=== PATIENT | female | born 1985 | race American Indian/Alaskan Native ===

== ENCOUNTER 2019-01-21 23:23 | Emergency (ER) | payer SELFPAY ==
[2019-01-21] MEDS ORDERED: NACL 0.9% 1000 ML 1,000 ML IV ONE (23:41)
[2019-01-21] MEDS ORDERED: NORCO 5/325 PO ONE (23:41)
[2019-01-21] MEDS ORDERED: ZOFRAN IV ONE (23:41)
[2019-01-21] MEDS ORDERED: TORADOL IV ONE (23:41)
[2019-01-21] MEDS ORDERED: DECADRON IV ONE (23:41)
--- NOTE | 2019-01-21 23:46 | Emergency Department Report ---
ED Fever HPI - General Chief Complaint: Headache Stated Complaint: FEVER Time Seen by Provider: 01/21/19 23:38 Source: patient, old records Exam Limitations: no limitations - History of Present Illness Initial Comments: Annie is a 33 yo female who returns to ER after being evaluated earlier this morning. She has persistent headache for 5 days. She continues to have subjecive fever, abdominal cramping and sweats. Global frontal headache. Arrived via EMS. Taking ibuprofen with minimal relief. 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 Timing/Duration: constant Fever Severity/Quality: greater than 100.5 F Fever Therapy PIG BREEDER: Ibuprofen Associated Symptoms: abdominal pain, headache, muscle aches ED Review of Systems ROS: Stated complaint: FEVER Other details as noted in HPI Comment: All other systems reviewed and negative Constitutional: fever, malaise Respiratory: denies: shortness of breath Gastrointestinal: abdominal pain ED Past Medical Hx - Past Medical History Previous Medical History?: No - Surgical History Past Surgical History?: No - Social History Smoking Status: Never Smoker - Medications Home Medications: Home Medications Medication Instructions Recorded Confirmed Last Taken Type Butalb/Acetaminophen/Caffeine 1 cap PO Q6HR PRN #10 cap 01/22/19 Unknown Rx [Fioricet 50-300-40 mg CAP] ED Physical Exam - General Limitations: No Limitations General appearance: alert, in no apparent distress, other (appears comfortable, does not appear toxic) - Head Head exam: Present: atraumatic, normocephalic - Eye Eye exam: Present: normal appearance. Absent: scleral icterus, conjunctival injection - ENT ENT exam: Present: mucous membranes moist - Neck Neck exam: Present: normal inspection, full ROM. Absent: tenderness, meningismus - Respiratory Respiratory exam: Present: normal lung sounds bilaterally. Absent: respiratory distress, wheezes, rales, rhonchi - Cardiovascular Cardiovascular Exam: Present: regular rate, normal rhythm, normal heart sounds. Absent: systolic murmur, diastolic murmur, rubs, gallop - GI/Abdominal GI/Abdominal exam: Present: soft, normal bowel sounds. Absent: distended, tenderness, guarding, rebound - Extremities Exam Extremities exam: Present: normal inspection - Back Exam Back exam: Present: normal inspection - Neurological Exam Neurological exam: Present: alert, oriented X3 - Psychiatric Psychiatric exam: Present: normal affect, normal mood - Skin Skin exam: Present: warm, dry, intact, normal color. Absent: rash ED Course Vital Signs 01/21/19 01/21/19 01/21/19 23:29 23:30 23:45 Temperature 100.9 F H Pulse Rate 100 H Respiratory 16 Rate Blood Pressure 112/80 112/80 114/79 Blood Pressure 111/78 [Left] O2 Sat by Pulse 99 98 Oximetry 01/22/19 01/22/19 01/22/19 00:00 00:18 00:30 Temperature Pulse Rate Respiratory Rate Blood Pressure 111/77 111/77 102/58 Blood Pressure [Left] O2 Sat by Pulse 98 97 Oximetry 01/22/19 01/22/19 01/22/19 00:45 01:00 01:30 Temperature Pulse Rate Respiratory Rate Blood Pressure 105/64 94/49 109/57 Blood Pressure [Left] O2 Sat by Pulse 98 97 Oximetry ED Medical Decision Making - Medical Decision Making Ms. Goss is an elderly female who returns to the ER with headache abdominal cramping generalized malaise and muscle aches suspected viral syndrome such as influenza however rapid flu negative chest x-ray negative for pneumonia. I do not suspect meningitis on today's presentation. She appears well nontoxic supple neck. She does have persistent low-grade fever. Upon further history taking, she is concerned that she will not be well for her international trip to [place] in 5 days. I advised her to rest and hydrate. I also advsied her fill the prescription provided by my colleague Dr. Up. I have added additional prescription for Fioricet for headache. Critical care attestation.: If time is entered above; I have spent that time in minutes in the direct care of this critically ill patient, excluding procedure time. ED Disposition Clinical Impression: Viral syndrome, Headache, Abdominal pain, Fever Disposition: - TO HOME OR SELFCARE Is pt being admited?: No Does the pt Need Aspirin: No Condition: Stable Instructions: Viral Syndrome (ED), Acute Headache (ED) Prescriptions: Butalb/Acetaminophen/Caffeine [Fioricet 50-300-40 mg CAP] 1 cap PO Q6HR PRN #10 cap PRN Reason: Headache
--- NOTE | 2019-01-22 01:15 | XRay Report ---
PROCEDURE: XR CHEST ROUTINE 2V TECHNIQUE: PA and lateral chest radiographs were obtained. HISTORY: fever COMPARISONS: None. FINDINGS: Heart: Normal. Mediastinum/Vessels: Normal. Lungs/Pleural space: Normal. Bony thorax: No acute osseous abnormality. IMPRESSION: Normal examination. This document is electronically signed by Kj Trammell MD., Jan 22 2019 01:13:28 AM ET
[2019-01-22 01:59] VITALS: BP 109/57
== END 2019-01-22 02:34 | disposition home or self-care (01) ==
LOC: ED 23:23
DX: B34.9 Viral infection, unspecified (principal); R10.9 Unspecified abdominal pain
CPT/HCPCS: 71046; 87400; 96374; 96375; 99284; J1100; J1885; J2405; J7030

== ENCOUNTER 2019-05-31 08:20 | Emergency (ER) | payer MEDICAID, OTHER ==
[2019-05-31 08:59] VITALS: BP 117/77
[2019-05-31] MEDS ORDERED: predniSONE 20 MG TAB PO ONE (09:02)
--- NOTE | 2019-05-31 09:06 | Emergency Department Report ---
ED Back Pain/Injury HPI - General Chief Complaint: Extremity Injury, Lower Stated Complaint: MUSCLE SPASM Time Seen by Provider: 05/31/19 09:02 Source: patient, EMS Limitations: No Limitations - History of Present Illness Initial Comments: 33 YO AA FEMALE COMES IN WITH L TRAP MUSCLE SPASM. SHE GETS OFTEN AND IS ON FLEXERIL. THIS AM IT DID NOT WORK SO SHE CALLED 911. PAIN 5/10. SHE IS EATING CHIPS ON EXAM. NO NEW FALL OR TRAUMA. - Related Data Previous Rx's Medication Instructions Recorded Last Taken Type Butalb/Acetaminophen/Caffeine 1 cap PO Q6HR PRN #10 cap 01/22/19 Unknown Rx [Fioricet 50-300-40 mg CAP] predniSONE [Deltasone] 20 mg PO DAILY #5 tablet 05/31/19 Unknown Rx Allergies Allergy/AdvReac Type Severity Reaction Status Date / Time No Known Allergies Allergy Verified 12/05/15 23:37 ED Review of Systems ROS: Stated complaint: MUSCLE SPASM Other details as noted in HPI Comment: All other systems reviewed and negative ED Past Medical Hx - Past Medical History CHRONIC MUSCLE SPASM ED Back Pain Physical Exam - Exam General: Vital signs noted. No distress. Alert and acting appropriately. Back/Abdomen: No Abdominal Tenderness, No Perithoracic Tenderness Neuro: Yes Normal Sensation, Yes Normal DTR's, Yes Normal Gait, No Motor Weakness ED Course Vital Signs 05/31/19 08:58 Temperature 98.4 F Pulse Rate 72 Blood Pressure 117/77 ED Medical Decision Making - Medical Decision Making MEDICATED WITH ROBAXIN AND PREDNISONE THIS IS CHRONIC ISSUE VSS NO NEW FALL / TRAUMA NEURO INTACT NON ILL APPEARING L TRAP MUSCLE SPASM ON EXAM DC HOME WITH DC PLAN OF CARE Vital Signs 05/31/19 08:58 Temperature 98.4 F Pulse Rate 72 Blood Pressure 117/77 Critical care attestation.: If time is entered above; I have spent that time in minutes in the direct care of this critically ill patient, excluding procedure time. ED Disposition Clinical Impression: Muscle spasm Disposition: DC-01 TO HOME OR SELFCARE Is pt being admited?: No Does the pt Need Aspirin: No Condition: Stable Instructions: Muscle Spasm (ED) Additional Instructions: WARM COMPRESSES CONTINUE HOME MEDS PREDNISONE ORDERED TODAY Referrals: AICHA MCDONALD MD [Staff Physician] - 3-5 Days Time of Disposition: 09:05
== END 2019-05-31 09:34 | disposition home or self-care (01) ==
LOC: ED 08:20
DX: M62.838 Other muscle spasm (principal)
CPT/HCPCS: 99283; J7512

== ENCOUNTER 2019-06-18 23:41 | Emergency (ER) | payer SELFPAY ==
[2019-06-18 23:53] VITALS: BP 123/81
[2019-06-19 00:22] LABS: Basophils # (Auto) 0.1 K/mm3 (0.0-0.1); Basophils % (Auto) 0.5 % (0.0-1.8); Eosinophils # (Auto) 0.1 K/mm3 (0.0-0.4); Eosinophils % (Auto) 0.8 % (0.0-4.3); Hematocrit 36.3 % (30.3-42.9); Hemoglobin 12.4 gm/dl (10.1-14.3); Lymphocytes # (Auto) 3.4 K/mm3 (1.2-5.4); Lymphocytes % (Auto) 32.8 % (13.4-35.0); Mean Corpuscular HGB Conc 34 % (30-34); Mean Corpuscular Volume 86 fl (79-97); Monocytes # (Auto) 0.6 K/mm3 (0.0-0.8); Monocytes % (Auto) 5.9 % (0.0-7.3); Platelet Count 229 K/mm3 (140-440); Red Blood Count 4.22 M/mm3 (3.65-5.03); Red Cell Distribution Width 13.7 % (13.2-15.2)
[2019-06-19 00:29] LABS: Bilirubin,Urine NEG (Negative); Blood,Urine NEG (Negative); Color,Urine Yellow (Yellow); Mucus,Urine 3+ /HPF; Protein,Urine <15 mg/dL mg/dL (Negative); Urobilinogen,Urine < 2.0 mg/dL (<2.0)
[2019-06-19 00:40] LABS: Alanine Aminotransferase 11 units/L (7-56); Albumin 4.4 g/dL (3.9-5); BUN/Creatinine Ratio 13; Blood Urea Nitrogen 8 mg/dL (7-17); Calcium 8.7 mg/dL (8.4-10.2); Hemolysis Index 3
[2019-06-19] MEDS ORDERED: MACROBID PO ONE (00:49)
--- NOTE | 2019-06-19 00:51 | Emergency Department Report ---
HPI - General Chief Complaint: Abdominal Pain Time Seen by Provider: 06/19/19 00:25 - HPI HPI: 33-year-old -Irish female presents to the emergency department with complaint of a 3 day history of some pelvic pain. She denies any dysuria, vaginal bleeding or discharge, fever. She does have a history of ovarian cysts and fibroids. She does not have any REPL[facility]ISHMENT ANALYST. She has not taken anything for her symptoms prior to presentation. The patient's test later came back positive. With this she is with 2 previous abortions and 2 live children. ED Past Medical Hx - Past Medical History Previous Medical History?: Yes Additional medical history: CHRONIC MUSCLE SPASM. ovarian cyst and fibroids. - Surgical History Past Surgical History?: No - Social History Smoking Status: Current Some Day Smoker Substance Use Type: Alcohol - Medications Home Medications: Home Medications Medication Instructions Recorded Confirmed Last Taken Type Butalb/Acetaminophen/Caffeine 1 cap PO Q6HR PRN #10 cap 01/22/19 Unknown Rx [Fioricet 50-300-40 mg CAP] predniSONE [Deltasone] 20 mg PO DAILY #5 tablet 05/31/19 Unknown Rx Nitrofurantoin [place]/M-Cryst 100 mg PO Q12HR #14 capsule 06/19/19 Unknown Rx [Macrobid CAP] Vit-Fe Fumar-FA [ 1 tab PO QDAY #30 tablet 06/19/19 Unknown Rx Vitamin] ED Review of Systems ROS: Stated complaint: ABD PAIN Other details as noted in HPI Comment: All other systems reviewed and negative Constitutional: denies: chills, fever Gastrointestinal: abdominal pain. denies: vomiting Genitourinary: other (pelvic pain). denies: dysuria, discharge Musculoskeletal: denies: back pain Skin: denies: rash, lesions Physical Exam - Physical Exam Vital Signs: Vital Signs 06/18/19 23:48 Temperature 98.2 F Pulse Rate 89 Blood Pressure 123/81 O2 Sat by Pulse 100 Oximetry Physical Exam: GENERAL: The patient is well-developed well-nourished. HENT: Normocephalic. Atraumatic. Patient has moist mucous membranes. EYES: Extraocular motions are intact. NECK: Supple. Trachea is midline. CHEST/LUNGS: Clear to auscultation. There is no respiratory distress noted. HEART/CARDIOVASCULAR: Regular. There is no tachycardia. There is no murmur. ABDOMEN: Abdomen is soft, nontender. Patient has normal bowel sounds. There is no abdominal distention. SKIN: Skin is warm and dry. NEURO: The patient is awake, alert, and oriented. The patient is cooperative. The patient has no focal neurologic deficits. Normal speech. MUSCULOSKELETAL: There is no tenderness or deformity. There is no evidence of acute injury. ED Course Vital Signs 06/18/19 23:48 Temperature 98.2 F Pulse Rate 89 Blood Pressure 123/81 O2 Sat by Pulse 100 Oximetry ED Medical Decision Making - Lab Data Result diagrams: 06/19/19 00:01 06/19/19 00:01 - Radiology Data Radiology results: report reviewed US OB transvaginal, US OB <= 14 weeks fetus INDICATION / CLINICAL INFORMATION: pelvic pain. COMPARISON: None available. FINDINGS: Uterus is enlarged measuring 9.3 cm. Multiple uterine fibroids are demonstrated. Intrauterine gestational sac is identified with yolk sac. Gestational sac measures 7 mm corresponding to a 5 week 3 day intrauterine ges tation. Right ovary measures 3.2 x 2.2 cm with a small complex cyst. The left ovary measures 3.8 x 3.6 cm. A 2.4 cm cyst is identified. Doppler imaging shows normal ovarian blood flow bilaterally. No fluid collections are seen in the cul-de-sac. IMPRESSION: 1. 5 week 3 day size gestational sac. - Medical Decision Making This patient presents with a three-day history of some pelvic discomfort. She has a history of ovarian cysts and fibroids. Labs did show that the patient is . She also has a urinalysis that shows mild urinary tract infection. An ultrasound was done that shows a live intrauterine at about 5-1/2 weeks. Vital signs stable throughout her ED course. Patient will be started on vitamins and given some Macrobid for the urinary tract infection. She's been given referrals for REPLENISHMENT ANALYST. She will return to the ER with any w orsening of her symptoms or any acute distress. - Differential Diagnosis , miscarriage, ectopic, fibroids, ovarian cyst, UTI Critical Care Time: No Critical care attestation.: If time is entered above; I have spent that time in minutes in the direct care of this critically ill patient, excluding procedure time. ED Disposition Clinical Impression: Qualifiers: Weeks of gestation: less than 8 weeks Qualified Code(s): Z3A.01 - Less than 8 weeks gestation of UTI (urinary tract infection) Qualifiers: Urinary tract infection type: acute cystitis Hematuria presence: without hematuria Qualified Code(s): N30.00 - Acute cystitis without hematuria Disposition: TO HOME OR SELFCARE Is pt being admited?: No Condition: Stable Instructions: (ED), Urinary Tract Infection in Women (ED) Additional Instructions: Please follow-up with an REPLENISHMENT ANALYST in the next few days. Return to the emergency Department with any worsening of your symptoms, development of vaginal bleeding, or with any acute distress. I am starting you on vitamins. You are also getting a prescription for Macrobid, an antibiotic for treatment of your urinary tract infection. I will also give you some referrals for local REPLENISHMENT ANALYST groups in the area. Prescriptions: Nitrofurantoin [place]/M-Cryst [Macrobid CAP] 100 mg PO Q12HR #14 capsule Vit-Fe Fumar-FA [ Vitamin] 1 tab PO QDAY #30 tablet Referrals: [facility] [Provider Group] - 3-5 Days [facility] [Provider Group] - 3-5 Days [facility] [Provider Group] - 3-5 Days Time of Disposition: 03:32
--- NOTE | 2019-06-19 03:25 | Ultrasound Report ---
US OB transvaginal, US OB <= 14 weeks fetus INDICATION / CLINICAL INFORMATION: pelvic pain. COMPARISON: None available. FINDINGS: Uterus is enlarged measuring 9.3 cm. Multiple uterine fibroids are demonstrated. Intrauterine gestational sac is identified with yolk sac. Gestational sac measures 7 mm corresponding to a 5 week 3 day intrauterine gestation. Right ovary measures 3.2 x 2.2 cm with a small complex cyst. The left ovary measures 3.8 x 3.6 cm. A 2.4 cm cyst is identified. Doppler imaging shows normal ovarian blood flow bilaterally. No fluid collections are seen in the cul-de-sac. IMPRESSION: 1. 5 week 3 day size gestational sac. Signer Name: Gary Turner MD Signed: 06/19/2019 3:20 AM Workstation Name: [id number]
== END 2019-06-19 04:23 | disposition home or self-care (01) ==
LOC: ED 23:41
DX: O23.41 Unspecified infection of urinary tract in pregnancy, first trimester (principal); O99.331 Smoking (tobacco) complicating pregnancy, first trimester; Z79.899 Other long term (current) drug therapy; Z3A.01 Less than 8 weeks gestation of pregnancy
CPT/HCPCS: 36415; 76801; 76817; 80053; 81001; 84703; 85025; 87086

== ENCOUNTER 2019-08-05 19:45 | Emergency (ER) | payer MEDICAID, OTHER ==
[2019-08-05 20:16] VITALS: BP 111/70
--- NOTE | 2019-08-05 21:59 | Event Note ---
ED Screening Note Date of service: 08/05/19 Time: 21:57 ED Screening Note: 33 y o female presents at 11 weeks gestation with unknown LMP followed by [facility] presents with cc of pelvic, low back and vaginal spotting x 2 days This initial assessment/diagnostic orders/clinical plan/treatment(s) is/are subject to change based on patients health status, clinical progression and re- assessment by fellow clinical providers in the ED. Further treatment and workup at subsequent clinical providers discretion. Patient/guardian urged not to elope from the ED as their condition may be serious if not clinically assessed and managed. Initial orders include: laabs, ua, US
[2019-08-05 23:10] LABS: Bacteria,Urine 1+ /HPF (Negative); Bilirubin,Urine NEG (Negative); Blood,Urine NEG (Negative); Color,Urine Yellow (Yellow); Mucus,Urine 1+ /HPF; Protein,Urine <15 mg/dL mg/dL (Negative)
--- NOTE | 2019-08-05 23:14 | Ultrasound Report ---
ULTRASOUND OBSTETRIC Indication: vaginal spotting Findings: There is a single, living intrauterine . [place]-rump length = 6.0 cm = 12 weeks, 4 day(s). heart rate is 170 beats per minute. The ovaries are normal. There is no free fluid. Impression: Single, living intrauterine with estimated sonographic age of 12 weeks, 4 day(s). Signer Name: Javier Molina MD Signed: 08/05/2019 11:10 PM Workstation Name: [id number]
== END 2019-08-05 23:30 | disposition left against medical advice (07) ==
LOC: ED 19:45
DX: R10.9 Unspecified abdominal pain (principal); Z53.21 Procedure and treatment not carried out due to patient leaving prior to being seen by health care provider
CPT/HCPCS: 76801; 81001; 87086

== ENCOUNTER 2019-08-06 23:41 | Emergency (ER) | payer MEDICAID, OTHER ==
[2019-08-07 00:08] VITALS: BP 102/62
--- NOTE | 2019-08-07 01:41 | Ultrasound Report ---
ULTRASOUND OBSTETRIC Indication: Vaginal bleeding 12 wks Findings: There is a single, living intrauterine . [place]-rump length = 6.5 cm = 12 weeks, 6 day(s). heart rate is 180 beats per minute. There is a 2.1 cm mass identified within the left ovary, nonspecific. Fibroid uterus.. There is no fr ee fluid. Impression: Single, living intrauterine with estimated sonographic age of 12 weeks, 6 day(s). Fibroid u terus. 2 cm masslike lesion within the left ovary present, possibly representing a corpus luteal cyst versus hemorrhagic cyst. Signer Name: Javier Molina MD Signed: 08/07/2019 1:37 AM Workstation Name: [id number]
[2019-08-07] MEDS ORDERED: CYCLOBENZAPRINE 10 MG TAB PO ONE (02:27)
--- NOTE | 2019-08-07 02:33 | Emergency Department Report ---
HPI - General Chief Complaint: Vaginal Bleeding Time Seen by Provider: 08/07/19 02:16 - HPI HPI: Room 41 The patient is a 33-year-old female presenting with a chief complaint abdominal pain and vaginal spotting. The patient is approximately 12 weeks states her symptoms began 6 days ago with left lower abdominal pain and flank pain. Patient states 2 days ago she developed vaginal spotting. Patient denies dysuria or history of fever. Patient complains of soreness in the abdomen currently Location: [See above] Duration: [See above] Quality: [See above] Severity: [See above] Timing: [See above] Context: [See above] Modifying factors: [See above] Associated signs and symptoms: [see above] Mode of transportation: The patient states she is not driving ED Past Medical Hx - Past Medical History Previous Medical History?: No Additional medical history: CHRONIC MUSCLE SPASM. ovarian cyst and fibroids. - Surgical History Past Surgical History?: No - Family History Family history: no significant - Social History Smoking Status: Never Smoker Substance Use Type: None (denies illicit drug use) - Medications Home Medications: Home Medications Medication Instructions Recorded Confirmed Last Taken Type Butalb/Acetaminophen/Caffeine 1 cap PO Q6HR PRN #10 cap 01/22/19 Unknown Rx [Fioricet 50-300-40 mg CAP] predniSONE [Deltasone] 20 mg PO DAILY #5 tablet 05/31/19 Unknown Rx Nitrofurantoin [place]/M-Cryst 100 mg PO Q12HR #14 capsule 06/19/19 Unknown Rx [Macrobid CAP] Vit-Fe Fumar-FA [ 1 tab PO QDAY #30 tablet 06/19/19 Unknown Rx Vitamin] Cyclobenzaprine [Flexeril] 10 mg PO TID PRN #10 tablet 08/07/19 Unknown Rx Nitrofurantoin [place]/M-Cryst 100 mg PO Q12HR #14 capsule 08/07/19 Unknown Rx [Macrobid CAP] ED Review of Systems ROS: Stated complaint: ABD PAIN Other details as noted in HPI Constitutional: denies: fever Eyes: denies: eye pain ENT: denies: throat pain Respiratory: no symptoms reported Cardiovascular: denies: chest pain Endocrine: no symptoms reported Gastrointestinal: abdominal pain Genitourinary: abnormal menses. denies: dysuria Musculoskeletal: back pain Neurological: denies: headache Physical Exam - Physical Exam Vital Signs: Vital Signs 08/06/19 08/07/19 23:51 00:18 Temperature 98.8 F 98.8 F Pulse Rate 89 91 H Respiratory 18 18 Rate Blood Pressure 102/62 102/62 O2 Sat by Pulse 97 97 Oximetry Physical Exam: GENERAL: The patient is well-developed well-nourished female lying on stretcher not appearing to be in acute distress. [] HEENT: Normocephalic. Atraumatic. Extraocular motions are intact. Patient has moist mucous membranes. NECK: Supple. Trachea midline CHEST/LUNGS: Clear to auscultation. There is no respiratory distress noted. HEART/CARDIOVASCULAR: Regular. There is no tachycardia. There is no gallop rub or murmur. ABDOMEN: Abdomen is soft, with mild discomfort to palpation in the left lower quadrant and right lower quadrant. Patient has normal bowel sounds. There is no abdominal distention. SKIN: There is no rash. There is no edema. There is no diaphoresis. NEURO: The patient is awake, alert, and oriented. The patient is cooperative. The patient has normal speech MUSCULOSKELETAL: There is no CVA tenderness. There is no evidence of acute injury. ED Course Vital Signs 08/06/19 08/07/19 23:51 00:18 Temperature 98.8 F 98.8 F Pulse Rate 89 91 H Respiratory 18 18 Rate Blood Pressure 102/62 102/62 O2 Sat by Pulse 97 97 Oximetry ED Medical Decision Making - Lab Data Result diagrams: 08/07/19 01:45 Laboratory Tests 08/07/19 08/07/19 08/07/19 01:42 01:43 01:45 WBC RBC Hgb Hct MCV MCH MCHC RDW Plt Count HCG, Quant 29826 H Urine Color Yellow Urine Turbidity Slightly-cloudy Urine pH 9.0 H Ur Specific [place] 1.018 Urine Protein 30 mg/dl Urine Glucose (UA) Neg Urine Ketones Neg Urine Blood Neg Urine Nitrite Neg Urine Bilirubin Neg Urine Urobilinogen 4.0 Ur Leukocyte Esterase Sm Urine WBC (Auto) 24.0 H Urine RBC (Auto) 9.0 U Epithel Cells (Auto) 9.0 Urine Bacteria (Auto) 1+ Blood Type A POSITIVE Ord Rhogam Gestat Weeks Rh pos 08/07/19 01:45 WBC 13.3 H RBC 3.93 Hgb 11.3 Hct 34.1 MCV 87 MCH 29 MCHC 33 RDW 13.8 Plt Count 204 HCG, Quant Urine Color Urine Turbidity Urine pH Ur Specific [place] Urine Protein Urine Glucose (UA) Urine Ketones Urine Blood Urine Nitrite Urine Bilirubin Urine Urobilinogen Ur Leukocyte Esterase Urine WBC (Auto) Urine RBC (Auto) U Epithel Cells (Auto) Urine Bacteria (Auto) Blood Type Ord Rhogam Gestat Weeks - Radiology Data Radiology results: report reviewed (pelvic ultrasound), image reviewed (pelvic ultrasound) [facility] [address] [place] [address] Ultrasound Report Signed Patient: ALFONSO ABREU MR#: [id number] : 1985 Acct:[id number] Age/Sex: 33 / F ADM Date: 08/06/19 Loc: ED Attending Dr: Ordering Physician: ZHAO HARRELL MD Date of Service: 08/07/19 Procedure(s): US OB <= 14 weeks fetus Accession Number(s): [id number] cc: ZHAO HARRELL MD ULTRASOUND OBSTETRIC Indication: Vaginal bleeding 12 wks Findings: There is a single, living intrauterine . [place]-rump length = 6.5 cm = 12 weeks, 6 day(s). heart rate is 180 beats per minute. There is a 2.1 cm mass identified within the left ovary, nonspecific. Fibroid uterus.. There is no free fluid. Impression: Single, living intrauterine with estimated sonographic age of 12 week s, 6 day(s). Fibroid uterus. 2 cm masslike lesion within the left ovary present, possibly representi ng a corpus luteal cyst versus hemorrhagic cyst. Signer Name: Javier Molina MD Signed: 08/07/2019 1:37 AM Workstation Name: [id number] Transcribed By: Dictated By: Javier Molina MD Electronically Authenticated By: Javier Molina MD Signed Date/Time: 08/07/19136 DD/ 4 TD/TT: - Differential Diagnosis threatened , UTI, pyelonephritis Critical care attestation.: If time is entered above; I have spent that time in minutes in the direct care of this critically ill patient, excluding procedure time. ED Disposition Clinical Impression: Threatened , UTI (urinary tract infection) Disposition: - TO HOME OR SELFCARE Is pt being admited?: No Does the pt Need Aspirin: No Condition: Stable Instructions: Threatened Miscarriage (ED) Additional Instructions: Return to the emergency department should you develop worsening symptoms, inability to tolerate food or liquids, high fever or any other concerns Prescriptions: Cyclobenzaprine [Flexeril] 10 mg PO TID PRN #10 tablet PRN Reason: Muscle Spasm Nitrofurantoin [place]/M-Cryst [Macrobid CAP] 100 mg PO Q12HR #14 capsule Referrals: PRIMARY CARE, [Primary Care Provider] - 3-5 Days [facility] [Provider Group] - 3-5 Days Time of Disposition: 03:10
[2019-08-07 02:44] LABS: Hematocrit 34.1 % (30.3-42.9); Hemoglobin 11.3 gm/dl (10.1-14.3); Mean Corpuscular HGB Conc 33 % (30-34); Mean Corpuscular Volume 87 fl (79-97); Platelet Count 204 K/mm3 (140-440); Red Blood Count 3.93 M/mm3 (3.65-5.03); Red Cell Distribution Width 13.8 % (13.2-15.2)
[2019-08-07 02:52] LABS: Bacteria,Urine 1+ /HPF (Negative); Bilirubin,Urine NEG (Negative); Blood,Urine NEG (Negative); Color,Urine Yellow (Yellow)
== END 2019-08-07 03:38 | disposition home or self-care (01) ==
LOC: ED 23:41
DX: O20.0 Threatened abortion (principal); O23.41 Unspecified infection of urinary tract in pregnancy, first trimester; Z79.899 Other long term (current) drug therapy; Z3A.12 12 weeks gestation of pregnancy
CPT/HCPCS: 36415; 76801; 81001; 84702; 85027; 86900; 86901; 87086

== ENCOUNTER 2020-01-30 05:53 | Emergency (ER) | payer MEDICAID ==
[2020-01-30 06:32] VITALS: BP 138/98
--- NOTE | 2020-01-30 07:53 | Emergency Department Report ---
ED Female HPI - General Chief complaint: Urogenital-Female Stated complaint: TAMPON LEFT IN FOR 2DAYS VAGINAL PAIN Time Seen by Provider: 01/30/20 07:28 Source: patient Mode of arrival: Ambulatory Limitations: No Limitations - History of Present Illness Initial comments: This is a 34-year-old female presents the ED complaining of vaginal irritation s tatus post today. Patient states she left a tampon in her vagina for 2 days and after that she noticed some irritation and some discharge. She denies pelvic pain, urinary frequency or urgency or dysuria. She denies abnormal vaginal bleeding. She denies fever, nausea vomiting or abdominal pain. MD Complaint: vaginal discharge - Related Data Previous Rx's Medication Instructions Recorded Last Taken Type Butalb/Acetaminophen/Caffeine 1 cap PO Q6HR PRN #10 cap 01/22/19 Unknown Rx [Fioricet 50-300-40 mg CAP] predniSONE [Deltasone] 20 mg PO DAILY #5 tablet 05/31/19 Unknown Rx Nitrofurantoin [place]/M-Cryst 100 mg PO Q12HR #14 capsule 06/19/19 Unknown Rx [Macrobid CAP] Vit-Fe Fumar-FA [ 1 tab PO QDAY #30 tablet 06/19/19 Unknown Rx Vitamin] Cyclobenzaprine [Flexeril] 10 mg PO TID PRN #10 tablet 08/07/19 Unknown Rx Nitrofurantoin [place]/M-Cryst 100 mg PO Q12HR #14 capsule 08/07/19 Unknown Rx [Macrobid CAP] metroNIDAZOLE [Flagyl] 500 mg PO Q12HR #14 tab 01/30/20 Unknown Rx Allergies Allergy/AdvReac Type Severity Reaction Status Date / Time No Known Allergies Allergy Verified 12/05/15 23:37 ED Review of Systems ROS: Stated complaint: TAMPON LEFT IN FOR 2DAYS VAGINAL PAIN Other details as noted in HPI Comment: All other systems reviewed and negative ED Past Medical Hx - Past Medical History Previous Medical History?: No Additional medical history: CHRONIC MUSCLE SPASM. ovarian cyst and fibroids. - Surgical History Past Surgical History?: No - Social History Smoking Status: Never Smoker - Medications Home Medications: Home Medications Medication Instructions Recorded Confirmed Last Taken Type Butalb/Acetaminophen/Caffeine 1 cap PO Q6HR PRN #10 cap 01/22/19 Unknown Rx [Fioricet 50-300-40 mg CAP] predniSONE [Deltasone] 20 mg PO DAILY #5 tablet 05/31/19 Unknown Rx Nitrofurantoin [place]/M-Cryst 100 mg PO Q12HR #14 capsule 06/19/19 Unknown Rx [Macrobid CAP] Vit-Fe Fumar-FA [ 1 tab PO QDAY #30 tablet 06/19/19 Unknown Rx Vitamin] Cyclobenzaprine [Flexeril] 10 mg PO TID PRN #10 tablet 08/07/19 Unknown Rx Nitrofurantoin [place]/M-Cryst 100 mg PO Q12HR #14 capsule 08/07/19 Unknown Rx [Macrobid CAP] metroNIDAZOLE [Flagyl] 500 mg PO Q12HR #14 tab 01/30/20 Unknown Rx ED Physical Exam - General Limitations: No Limitations General appearance: alert, in no apparent distress - Head Head exam: Present: atraumatic, normocephalic - Eye Eye exam: Present: normal appearance - ENT ENT exam: Present: mucous membranes moist - Neck Neck exam: Present: normal inspection - Respiratory Respiratory exam: Present: normal lung sounds bilaterally. Absent: respiratory distress - Cardiovascular Cardiovascular Exam: Present: regular rate, normal rhythm. Absent: systolic murmur, diastolic murmur, rubs, gallop - GI/Abdominal GI/Abdominal exam: Present: soft, normal bowel sounds - External exam: Present: normal external exam. Absent: erythema, swelling, lesions Speculum exam: Present: normal speculum exam, vaginal discharge. Absent: cervical discharge, vaginal bleeding, tissue, laceration Bi-manual exam: Present: normal bi-manual exam. Absent: cervical motion tendernes - Extremities Exam Extremities exam: Present: normal inspection - Back Exam Back exam: Present: normal inspection - Neurological Exam Neurological exam: Present: alert, oriented X3 - Psychiatric Psychiatric exam: Present: normal affect, normal mood - Skin Skin exam: Present: warm, dry, intact, normal color. Absent: rash ED Course Vital Signs 01/30/20 06:26 Temperature 97.8 F Pulse Rate 85 Respiratory 20 Rate Blood Pressure 138/98 O2 Sat by Pulse 100 Oximetry ED Medical Decision Making - Medical Decision Making 32-year-old female presents with vaginitis. Wet prep negative for trichomoniasis or yeast. Greater than 20% clue cells noticed. We will treat for vaginitis. Discussed with patient to follow-up with [facility]. Vital signs are normal patient is in no acute distress. Critical care attestation.: If time is entered above; I have spent that time in minutes in the direct care of this critically ill patient, excluding procedure time. ED Disposition Clinical Impression: Vaginitis, Vaginal irritation Disposition: - TO HOME OR SELFCARE Is pt being admited?: No Does the pt Need Aspirin: No Condition: Stable Instructions: Bacterial Vaginosis (ED), Vaginitis (ED) Additional Instructions: Make sure to follow up with the primary care physician as discussed. Take all your medications as you've been prescribed. If you have any worsening symptoms or develop new symptoms please return to ED immediately. Prescriptions: metroNIDAZOLE [Flagyl] 500 mg PO Q12HR #14 tab Referrals: PRIMARY CARE,MD [Primary Care Provider] - 3-5 Days [facility] [Outside] - 3-5 Days [facility] [Outside] - 3-5 Days Forms: Work/School Release Form(ED) Time of Disposition: 07:52
== END 2020-01-30 08:39 | disposition home or self-care (01) ==
LOC: ED 05:53
DX: N76.0 Acute vaginitis (principal); Z79.899 Other long term (current) drug therapy
CPT/HCPCS: 87210; 87591

== ENCOUNTER 2021-10-24 20:35 | Emergency (ER) | payer MEDICAID ==
[2021-10-24 21:40] VITALS: BP 122/78
[2021-10-24 23:31] LABS: Basophils % (Auto) 0.4 % (0.0-1.8); Eosinophils # (Auto) 0.1 K/mm3 (0.0-0.4); Hematocrit 36.1 % (30.3-42.9); Hemoglobin 11.9 gm/dl (10.1-14.3); Lymphocytes % (Auto) 28.8 % (13.4-35.0); Mean Corpuscular HGB Conc 33 % (30-34); Mean Corpuscular Volume 88 fl (79-97); Monocytes # (Auto) 0.8 K/mm3 (0.0-0.8); Monocytes % (Auto) 7.6 % (0.0-7.3); Platelet Count 241 K/mm3 (140-440); Red Blood Count 4.08 M/mm3 (3.65-5.03); Red Cell Distribution Width 13.4 % (13.2-15.2)
[2021-10-24 23:37] LABS: Blood Urea Nitrogen 7 mg/dL (7-17); Calcium 9.2 mg/dL (8.4-10.2); Hemolysis Index 6
[2021-10-24 23:43] LABS: BUN/Creatinine Ratio 12
[2021-10-24 23:45] LABS: INR 0.88 (0.87-1.13)
[2021-10-25 00:43] LABS: Bilirubin,Urine NEG (Negative); Blood,Urine NEG (Negative); Color,Urine Yellow (Yellow); Mucus,Urine FEW /HPF; Urobilinogen,Urine < 2.0 mg/dL (<2.0)
[2021-10-25 00:45] LABS: HCG Qualitative,Urine Negative (Negative)
--- NOTE | 2021-10-25 01:26 | Ultrasound Report ---
ULTRASOUND OBSTETRIC REASON FOR EXAM: Vaginal bleeding TECHNIQUE: Transabdominal and transvaginal ultrasound was performed to evaluate a first trimester pre gnancy. COMPARISON: None available. FINDINGS: FINDINGS: Small intrauterine gestational sac with decidual reaction. Mean sac diameter measures 7 mm, correspon ding to a gestational age of 5 weeks and 3 days. No yolk sac or pole is identified at this time . MATERNAL FINDINGS: The uterus demonstrates an otherwise unremarkable sonographic appearance. The right ovary demonstrates a normal sonographic appearance. The left ovary demonstrates a normal sonographic appearance. Cul-de-sac: There is no free fluid. IMPRESSION: Small intrauterine gestational sac without yolk sac or pole identified at this time, may be rel ated to early gestational age. In a hemodynamically stable patient, recommend follow-up with pelvic u ltrasound in 7-10 days. Signer Name: Connor Rose MD Signed: 10/25/2021 1:22 AM Workstation Name: [id number]
--- NOTE | 2021-10-25 01:37 | Emergency Department Report ---
ED HPI - General Chief complaint: Vaginal Bleeding Stated complaint: STOMACH PAIN Time Seen by Provider: 10/24/21 22:29 Source: patient Mode of arrival: Ambulatory Limitations: No Limitations - History of Present Illness Initial comments: patient has a hx of fibroids and she has been having pain for about 4 days now MD Complaint: abdominal pain -: Gradual Location: abdomen Radiation: none Severity: mild Severity scale (0 -10): 2 Quality: aching Consistency: intermittent Worsens with: none - Related Data Previous Rx's Medication Instructions Recorded Last Taken Type Butalb/Acetaminophen/Caffeine 1 cap PO Q6HR PRN #10 cap 01/22/19 Unknown Rx [Fioricet 50-300-40 mg CAP] predniSONE [Deltasone] 20 mg PO DAILY #5 tablet 05/31/19 Unknown Rx Nitrofurantoin [place]/M-Cryst 100 mg PO Q12HR #14 capsule 06/19/19 Unknown Rx [Macrobid CAP] Vit-Fe Fumar-FA [ 1 tab PO QDAY #30 tablet 06/19/19 Unknown Rx Vitamin] Cyclobenzaprine [Flexeril] 10 mg PO TID PRN #10 tablet 08/07/19 Unknown Rx Nitrofurantoin [place]/M-Cryst 100 mg PO Q12HR #14 capsule 08/07/19 Unknown Rx [Macrobid CAP] Fluconazole (Nf) [Diflucan TAB] 150 mg PO DAILY #1 tablet 01/30/20 Unknown Rx metroNIDAZOLE [Flagyl] 500 mg PO Q12HR #14 tab 01/30/20 Unknown Rx Ibuprofen [Motrin] 600 mg PO Q8H PRN #24 tablet 03/14/20 Unknown Rx Sulfamethoxazole/Trimethoprim 1 each PO Q12H #20 tablet 03/14/20 Unknown Rx [Bactrim DS TAB] Allergies Allergy/AdvReac Type Severity Reaction Status Date / Time No Known Allergies Allergy Verified 12/05/15 23:37 ED Review of Systems ROS: Stated complaint: STOMACH PAIN Other details as noted in HPI Constitutional: denies: chills, fever Eyes: denies: eye pain, eye discharge, vision change ENT: denies: ear pain, throat pain Respiratory: denies: cough, shortness of breath, wheezing Cardiovascular: denies: chest pain, palpitations Endocrine: no symptoms reported Gastrointestinal: denies: abdominal pain, nausea, diarrhea Genitourinary: denies: urgency, dysuria, discharge Musculoskeletal: denies: back pain, joint swelling, arthralgia Skin: denies: rash, lesions Neurological: denies: headache, weakness, paresthesias Psychiatric: denies: anxiety, depression Hematological/Lymphatic: denies: easy bleeding, easy bruising ED Past Medical Hx - Past Medical History Previous Medical History?: Yes Additional medical history: CHRONIC MUSCLE SPASM. ovarian cyst and fibroids. - Surgical History Past Surgical History?: No - Social History Smoking Status: Never Smoker Substance Use Type: None - Medications Home Medications: Home Medications Medication Instructions Recorded Confirmed Last Taken Type Butalb/Acetaminophen/Caffeine 1 cap PO Q6HR PRN #10 cap 01/22/19 Unknown Rx [Fioricet 50-300-40 mg CAP] predniSONE [Deltasone] 20 mg PO DAILY #5 tablet 05/31/19 Unknown Rx Nitrofurantoin [place]/M-Cryst 100 mg PO Q12HR #14 capsule 06/19/19 Unknown Rx [Macrobid CAP] Vit-Fe Fumar-FA [ 1 tab PO QDAY #30 tablet 06/19/19 Unknown Rx Vitamin] Cyclobenzaprine [Flexeril] 10 mg PO TID PRN #10 tablet 08/07/19 Unknown Rx Nitrofurantoin [place]/M-Cryst 100 mg PO Q12HR #14 capsule 08/07/19 Unknown Rx [Macrobid CAP] Fluconazole (Nf) [Diflucan TAB] 150 mg PO DAILY #1 tablet 01/30/20 Unknown Rx metroNIDAZOLE [Flagyl] 500 mg PO Q12HR #14 tab 01/30/20 Unknown Rx Ibuprofen [Motrin] 600 mg PO Q8H PRN #24 tablet 03/14/20 Unknown Rx Sulfamethoxazole/Trimethoprim 1 each PO Q12H #20 tablet 03/14/20 Unknown Rx [Bactrim DS TAB] ED Physical Exam - General Limitations: No Limitations General appearance: alert, in no apparent distress - Head Head exam: Present: atraumatic, normocephalic - Eye Eye exam: Present: normal appearance - ENT ENT exam: Present: mucous membranes moist - Neck Neck exam: Present: normal inspection - Respiratory Respiratory exam: Present: normal lung sounds bilaterally. Absent: respiratory distress - Cardiovascular Cardiovascular Exam: Present: regular rate, normal rhythm. Absent: systolic murmur, diastolic murmur, rubs, gallop - GI/Abdominal GI/Abdominal exam: Present: soft, normal bowel sounds - Extremities Exam Extremities exam: Present: normal inspection - Back Exam Back exam: Present: normal inspection - Neurological Exam Neurological exam: Present: alert, oriented X3 - Psychiatric Psychiatric exam: Present: normal affect, normal mood - Skin Skin exam: Present: warm, dry, intact, normal color. Absent: rash ED Course Vital Signs 10/24/21 21:39 Temperature 98.4 F Pulse Rate 74 Respiratory 18 Rate Blood Pressure 122/78 O2 Sat by Pulse 100 Oximetry - Reevaluation(s) Reevaluation #1: 10/25/21 01:36 work up unremarkable , US showd no pole yet , early pregnncy will follow up with her Ob no bleeding vss no distress ED Medical Decision Making - Lab Data Result diagrams: 10/24/21 22:50 10/24/21 22:50 Critical care attestation.: If time is entered above; I have spent that time in minutes in the direct care of this critically ill patient, excluding procedure time. ED Disposition Clinical Impression: Abdominal pain during intrauterine Disposition: 01 HOME / SELF CARE / HOMELESS Is pt being admited?: No Does the pt Need Aspirin: No Condition: Stable Instructions: Abdominal Pain, Adult, [id number], Abdominal Pain During , [id number] Referrals: PRIMARY CARE, [Primary Care Provider] - 3-5 Days
== END 2021-10-25 01:55 | disposition home or self-care (01) ==
LOC: ED 20:35
DX: O26.891 Other specified pregnancy related conditions, first trimester (principal); R10.9 Unspecified abdominal pain; O00.01 Abdominal pregnancy with intrauterine pregnancy; Z3A.00 Weeks of gestation of pregnancy not specified
CPT/HCPCS: 36415; 76801; 80048; 81001; 81025; 84702; 85025; 85610; 99284

== ENCOUNTER 2021-10-28 12:46 | Emergency (ER) | payer MEDICAID ==
[2021-10-28 12:48] VITALS: BP 125/78
[2021-10-28] MEDS ORDERED: ACETAMINOPHEN 500 MG TAB PO STA (13:57)
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
[2021-10-28 15:04] LABS: Bilirubin,Urine NEG (Negative); Blood,Urine NEG (Negative); Color,Urine Yellow (Yellow); Protein,Urine <15 mg/dL mg/dL (Negative); Urobilinogen,Urine < 2.0 mg/dL (<2.0); WBC,Urine < 1.0 /HPF (0.0-6.0)
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
[2021-10-28 16:38] LABS: Basophils % (Auto) 0.3 % (0.0-1.8); Eosinophils % (Auto) 0.4 % (0.0-4.3); Hematocrit 34.6 % (30.3-42.9); Hemoglobin 11.9 gm/dl (10.1-14.3); Lymphocytes # (Auto) 2.5 K/mm3 (1.2-5.4); Lymphocytes % (Auto) 21.3 % (13.4-35.0); Mean Corpuscular HGB Conc 35 % (30-34); Mean Corpuscular Volume 87 fl (79-97); Monocytes # (Auto) 0.7 K/mm3 (0.0-0.8); Monocytes % (Auto) 6.1 % (0.0-7.3); Platelet Count 240 K/mm3 (140-440); Red Blood Count 3.96 M/mm3 (3.65-5.03); Red Cell Distribution Width 13.3 % (13.2-15.2)
[2021-10-28 16:55] LABS: Alanine Aminotransferase 14 units/L (7-56); Albumin 4.2 g/dL (3.9-5); BUN/Creatinine Ratio 8; Blood Urea Nitrogen 5 mg/dL (7-17); Calcium 9.1 mg/dL (8.4-10.2); Hemolysis Index 7
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
== END 2021-10-28 17:47 | disposition home or self-care (01) ==
LOC: ED 12:46
DX: O26.891 Other specified pregnancy related conditions, first trimester (principal); R10.9 Unspecified abdominal pain; Z3A.01 Less than 8 weeks gestation of pregnancy; V43.52XA Car driver injured in collision with other type car in traffic accident, initial encounter; Y93.89 Activity, other specified; Y92.89 Other specified places as the place of occurrence of the external cause; Y99.8 Other external cause status
CPT/HCPCS: 36415; 76801; 76817; 80053; 81001; 84702; 85025; 99284

== ENCOUNTER 2021-12-23 12:59 | Emergency (ER) | payer MEDICAID, OTHER ==
[2021-12-23 15:10] LABS: Basophils # (Auto) 0.1 K/mm3 (0.0-0.1); Basophils % (Auto) 0.9 % (0.0-1.8); Eosinophils # (Auto) 0.1 K/mm3 (0.0-0.4); Hematocrit 33.5 % (30.3-42.9); Hemoglobin 11.8 gm/dl (10.1-14.3); Lymphocytes # (Auto) 2.5 K/mm3 (1.2-5.4); Lymphocytes % (Auto) 21.8 % (13.4-35.0); Mean Corpuscular HGB Conc 35 % (30-34); Mean Corpuscular Volume 86 fl (79-97); Monocytes # (Auto) 0.7 K/mm3 (0.0-0.8); Monocytes % (Auto) 6.3 % (0.0-7.3); Platelet Count 306 K/mm3 (140-440); Red Cell Distribution Width 13.7 % (13.2-15.2)
[2021-12-23 15:23] LABS: Alanine Aminotransferase TNR units/L (7-56); Albumin TNR g/dL (3.9-5); BUN/Creatinine Ratio TNR; Blood Urea Nitrogen TNR mg/dL (7-17); Calcium TNR mg/dL (8.4-10.2); Hemolysis Index TNR
[2021-12-23 15:24] LABS: Bilirubin,Urine NEG (Negative); Blood,Urine NEG (Negative); Color,Urine Straw (Yellow); Protein,Urine <15 mg/dL mg/dL (Negative); Urobilinogen,Urine < 2.0 mg/dL (<2.0)
[2021-12-23 16:40] LABS: Alanine Aminotransferase 8 units/L (7-56); Albumin 3.9 g/dL (3.9-5); Blood Urea Nitrogen 7 mg/dL (7-17); Calcium 8.8 mg/dL (8.4-10.2); Hemolysis Index 10
[2021-12-23 16:41] LABS: BUN/Creatinine Ratio 14
--- NOTE | 2021-12-23 16:46 | Cat Scan Report ---
CTA CHEST WITH CONTRAST INDICATION / CLINICAL INFORMATION: chest pain, dyspnea, , r/o PE. TECHNIQUE: Axial CT images were obtained through the chest after injection of Omnipaque 350, 100 cc I V contrast. 3 plane MIP and/or 3D reconstructions were produced. All CT scans at this location are pe rformed using CT dose reduction for ALARA by means of automated exposure control. COMPARISON: None available. FINDINGS: PULMONARY ARTERIES: No pulmonary emboli. THORACIC AORTA: No significant abnormality. HEART: No significant abnormality. CORONARY ARTERY CALCIFICATION: None. MEDIASTINUM / EDGAR: No significant abnormality. PLEURA: No pleural effusion. No pneumothorax. LUNGS: No acute air space or interstitial disease. ADDITIONAL FINDINGS: None. UPPER ABDOMEN: No acute findings. SKELETAL STRUCTURES: No significant osseous abnormality. IMPRESSION: 1. No CT evidence for pulmonary embolism. 2. Negative for pneumonia. Signer Name: Justice Mccormick MD Signed: 12/23/2021 4:42 PM Workstation Name: [id number]
--- NOTE | 2021-12-23 17:10 | Emergency Department Report ---
ED General Adult HPI - General Chief complaint: Urogenital-Female Stated complaint: CHEST/VAG/STOM PAIN 14WKS PREG Source: patient Mode of arrival: Ambulatory Limitations: No Limitations - History of Present Illness Initial comments: Patient is a A2 36-year-old -[place] female who is approximately 14 weeks gestation who presents to the ED with complaint of acute onset persistent chest pain and shortness of breath, diffuse lower abdominal pain and vaginal pain with discharge for the last 1 week, worse in the last 2 days. Patient states that the pain in the chest is worse with activity. Patient denies fever, chills, dysuria, urinary frequency and urgency, vaginal bleeding, vaginal discharge, cough, nausea and vomiting, nasal and sinus congestion, headache, low back pain, heavy lifting, fall or numbness and tingling weakness of upper and lower extremities bilaterally and sore throat. MD Complaint: chest pain, dyspnea, vaginal pain and discharge -: Sudden, week(s) (1) Location: chest, genitals Radiation: non-radiation Severity scale (0 -10): 6 Quality: dull Consistency: intermittent Improves with: none Associated Symptoms: denies other symptoms, chest pain, shortness of breath. denies: confusion, cough, diaphoresis, fever/chills, headaches, loss of appetite, malaise, nausea/vomiting, rash, seizure, syncope, weakness Treatments Prior to Arrival: none - Related Data Previous Rx's Medication Instructions Recorded Last Taken Type Butalb/Acetaminophen/Caffeine 1 cap PO Q6HR PRN #10 cap 01/22/19 Unknown Rx [Fioricet 50-300-40 mg CAP] predniSONE [Deltasone] 20 mg PO DAILY #5 tablet 05/31/19 Unknown Rx Nitrofurantoin [place]/M-Cryst 100 mg PO Q12HR #14 capsule 06/19/19 Unknown Rx [Macrobid CAP] Vit-Fe Fumar-FA [ 1 tab PO QDAY #30 tablet 06/19/19 Unknown Rx Vitamin] Cyclobenzaprine [Flexeril] 10 mg PO TID PRN #10 tablet 08/07/19 Unknown Rx Nitrofurantoin [place]/M-Cryst 100 mg PO Q12HR #14 capsule 08/07/19 Unknown Rx [Macrobid CAP] Fluconazole (Nf) [Diflucan TAB] 150 mg PO DAILY #1 tablet 01/30/20 Unknown Rx Ibuprofen [Motrin] 600 mg PO Q8H PRN #24 tablet 03/14/20 Unknown Rx Sulfamethoxazole/Trimethoprim 1 each PO Q12H #20 tablet 03/14/20 Unknown Rx [Bactrim DS TAB] Lidocaine [Lidoderm] 1 each TP Q12HR #10 patch 10/28/21 Unknown Rx Acetaminophen [Tylenol] 500 mg PO Q6HR PRN #40 tablet 12/23/21 Unknown Rx metroNIDAZOLE [Flagyl TAB] 500 mg PO Q12HR #14 tab 12/23/21 Unknown Rx Allergies Allergy/AdvReac Type Severity Reaction Status Date / Time No Known Allergies Allergy Verified 12/23/21 13:09 ED Review of Systems ROS: Stated complaint: CHEST/VAG/STOM PAIN 14WKS PREG Other details as noted in HPI Constitutional: denies: chills, fever Eyes: denies: eye pain, eye discharge, vision change ENT: denies: ear pain, throat pain, dental pain, hearing loss, congestion Respiratory: shortness of breath. denies: cough, wheezing Cardiovascular: denies: chest pain, palpitations Endocrine: no symptoms reported Gastrointestinal: denies: abdominal pain, nausea, vomiting, diarrhea, constipation, hematemesis, hematochezia Genitourinary: other (Vaginal pain). denies: urgency, dysuria, discharge, abnormal menses Musculoskeletal: arthralgia. denies: back pain, joint swelling Skin: denies: rash, lesions Neurological: denies: headache, weakness, paresthesias Psychiatric: denies: anxiety, depression Hematological/Lymphatic: denies: easy bleeding, easy bruising ED Past Medical Hx - Past Medical History Previous Medical History?: No Additional medical history: CHRONIC MUSCLE SPASM. ovarian cyst and fibroids. - Social History Smoking Status: Never Smoker Substance Use Type: None - Medications Home Medications: Home Medications Medication Instructions Recorded Confirmed Last Taken Type Butalb/Acetaminophen/Caffeine 1 cap PO Q6HR PRN #10 cap 01/22/19 Unknown Rx [Fioricet 50-300-40 mg CAP] predniSONE [Deltasone] 20 mg PO DAILY #5 tablet 05/31/19 Unknown Rx Nitrofurantoin [place]/M-Cryst 100 mg PO Q12HR #14 capsule 06/19/19 Unknown Rx [Macrobid CAP] Vit-Fe Fumar-FA [ 1 tab PO QDAY #30 tablet 06/19/19 Unknown Rx Vitamin] Cyclobenzaprine [Flexeril] 10 mg PO TID PRN #10 tablet 08/07/19 Unknown Rx Nitrofurantoin [place]/M-Cryst 100 mg PO Q12HR #14 capsule 08/07/19 Unknown Rx [Macrobid CAP] Fluconazole (Nf) [Diflucan TAB] 150 mg PO DAILY #1 tablet 01/30/20 Unknown Rx Ibuprofen [Motrin] 600 mg PO Q8H PRN #24 tablet 03/14/20 Unknown Rx Sulfamethoxazole/Trimethoprim 1 each PO Q12H #20 tablet 03/14/20 Unknown Rx [Bactrim DS TAB] Lidocaine [Lidoderm] 1 each TP Q12HR #10 patch 10/28/21 Unknown Rx Acetaminophen [Tylenol] 500 mg PO Q6HR PRN #40 tablet 12/23/21 Unknown Rx metroNIDAZOLE [Flagyl TAB] 500 mg PO Q12HR #14 tab 12/23/21 Unknown Rx ED Physical Exam - General Limitations: No Limitations General appearance: alert, in no apparent distress - Head Head exam: Present: atraumatic, normocephalic, normal inspection - Eye Eye exam: Present: normal appearance, PERRL, EOMI Pupils: Present: normal accommodation - ENT ENT exam: Present: normal exam, normal orophraynx, mucous membranes moist, TM's normal bilaterally, normal external ear exam - Neck Neck exam: Present: normal inspection, full ROM - Respiratory Respiratory exam: Present: normal lung sounds bilaterally. Absent: respiratory distress, wheezes, rales, rhonchi, stridor, chest wall tenderness, accessory muscle use, decreased breath sounds, prolonged expiratory - Cardiovascular Cardiovascular Exam: Present: regular rate, normal rhythm, normal heart sounds. Absent: systolic murmur, diastolic murmur, rubs, gallop - GI/Abdominal GI/Abdominal exam: Present: soft, normal bowel sounds. Absent: tenderness, guarding, rebound, hyperactive bowel sounds, hypoactive bowel sounds, organomegaly, mass - Bi-manual exam: Present: other (Pelvic exam deferred at this time, patient preferred self swab) - Extremities Exam Extremities exam: Present: normal inspection, full ROM, normal capillary refill - Back Exam Back exam: Present: normal inspection, full ROM. Absent: tenderness, CVA tenderness (R), CVA tenderness (L), muscle spasm, paraspinal tenderness, vertebral tenderness - Neurological Exam Neurological exam: Present: alert, oriented X3, CN II-XII intact, normal gait, reflexes normal - Psychiatric Psychiatric exam: Present: normal affect, normal mood - Skin Skin exam: Present: warm, dry, intact, normal color. Absent: rash ED Course Vital Signs 12/23/21 13:04 Temperature 97.7 F Pulse Rate 92 H Respiratory 16 Rate Blood Pressure 121/83 O2 Sat by Pulse 99 Oximetry ED Medical Decision Making - Lab Data Result diagrams: 12/23/21 14:52 12/23/21 Unknown - Radiology Data [facility] [address] [place] [address] Cat Scan Report Signed Patient: ALFONSO ABREU MR#: [id number] : 1985 Acct:[id number] Age/Sex: 36 / F ADM Date: 12/23/21 Loc: ED Attending Dr: Ordering Physician: INDU PETERSEN Date of Service: 12/23/21 Procedure(s): CT angio chest Accession Number(s): [id number] cc: INDU PETERSEN CTA CHEST WITH CONTRAST INDICATION / CLINICAL INFORMATION: chest pain, dyspnea, , r/o PE. TECHNIQUE: Axial CT images were obtained through the chest after injection of Omnipaque 350, 100 cc IV contrast. 3 plane MIP and/or 3D reconstructions were produced. All CT scans at this location are performed using CT dose reduction for ALARA by means of automated exposure control. COMPARISON: None available. FINDINGS: PULMONARY ARTERIES: No pulmonary emboli. THORACIC AORTA: No significant abnormality. HEART: No significant abnormality. CORONARY ARTERY CALCIFICATION: None. MEDIASTINUM / EDGAR: No significant abnormality. PLEURA: No pleural effusion. No pneumothorax. LUNGS: No acute air space or interstitial disease. ADDITIONAL FINDINGS: None. UPPER ABDOMEN: No acute findings. SKELETAL STRUCTURES: No significant osseous abnormality. IMPRESSION: 1. No CT evidence for pulmonary embolism. 2. Negative for pneumonia. Signer Name: Justice Mccormick MD Signed: 12/23/2021 4:42 PM Workstation Name: [id number] Transcribed By: ES Dictated By: Justice Mccormick MD Electronically Authenticated By: Justice Mccormick MD Signed Date/Time: 12/23/21 1642 DD/ 1635 TD/TT: - Medical Decision Making This is a A2 36-year-old -[place] female who is approximately 14 weeks gestation who presents to the ED with complaint of acute onset persistent chest pain and shortness of breath, diffuse lower abdominal pain and vaginal pain with discharge for the last 1 week, worse in the last 2 days. Patient states that the pain in the chest is worse with activity. In the ED, patient is alert and oriented x3 and is not in any distress. Patient is hemodynamically stable. All lab test results were reviewed and are all nonactionable. EKG shows normal sinus rhythm with a ventricular rate of [address] or T wave abnormalities. Chest CT angiogram showed no evidence of pulmonary embolism or pneumonia. Wet prep test was positive for Gardnerella vaginalis. 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 - Differential Diagnosis PE; UTI; muscle spasm; pneumonia; anxiety; Critical care attestation.: If time is entered above; I have spent that time in minutes in the direct care of this critically ill patient, excluding procedure time. ED Disposition Clinical Impression: Acute nonspecific chest pain with low risk of coronary artery disease, Bacterial vaginosis, Anxiety as acute reaction to exceptional stress Disposition: 01 HOME / SELF CARE / HOMELESS Is pt being admited?: No Does the pt Need Aspirin: No Condition: Stable Instructions: Generalized Anxiety Disorder, Adult, Bacterial Vaginosis, [id number]-Vkcz, Nonspecific Chest Pain, Adult, Rirh-ta-Aasi, Chest Pain (ED), Bacterial Vaginosis (ED) Additional Instructions: All lab test results were reviewed and are all nonactionable except for wet prep test which was positive for Gardnerella vaginalis consistent with bacterial vaginosis. Chest CTA was negative for PE or pneumonia. Therefore take medication as needed for pain, take the antibiotic for bacterial vaginosis and drink plenty of fluids. Follow-up with your SECONDARY SCHOOL TE[employer]ER physician in 5 to 7 days for reevaluation or return to the ED immediately if symptoms get worse Prescriptions: Acetaminophen [Tylenol] 500 mg PO Q6HR PRN #40 tablet PRN Reason: Pain , Severe (7-10) metroNIDAZOLE [Flagyl TAB] 500 mg PO Q12HR #14 tab Referrals: DYANA HIGHTOWER MD [Primary Care Provider] - 3-5 Days Forms: STI Treatment and Prevention Time of Disposition: 17:14 Print Language: MALIAN
[2021-12-23 19:32] VITALS: BP 122/84
--- NOTE | 2021-12-24 10:58 | Electrocardiograph Report ---
[facility] Test Date: 2021-12-23 Test Time: 17:45:34 Pat Name: ALFONSO ABREU Department: Room: Gender: F Lion Tamer: MARCELO : 1985 Requested By: DEJUAN JOHNSTON Order Number: [id number] Reading MD: Timothy Rust Measurements Intervals [place] Rate: 62 P: 53 SC: 142 QRS: 37 QRSD: 74 T: 38 QT: 386 QTc: 392 Interpretive Statements Sinus rhythm No previous ECG available for comparison Electronically Signed On 12-24-2021 10:58:35 EDT by Timothy Rust
== END 2021-12-23 19:33 | disposition home or self-care (01) ==
LOC: ED 12:59
DX: O99.411 Diseases of the circulatory system complicating pregnancy, first trimester (principal); O23.599 Infection of other part of genital tract in pregnancy, unspecified trimester; Z3A.14 14 weeks gestation of pregnancy
CPT/HCPCS: 36415; 71275; 80053; 81001; 84484; 85025; 87210; 93005; 99284; Q9967

== ENCOUNTER 2022-01-15 18:10 | Emergency (ER) | payer MEDICAID ==
[2022-01-15 19:24] VITALS: BP 113/67
== END 2022-01-16 11:33 | disposition left against medical advice (07) ==
LOC: ED 18:10
DX: R07.9 Chest pain, unspecified (principal); Z53.21 Procedure and treatment not carried out due to patient leaving prior to being seen by health care provider
CPT/HCPCS: 93005

== ENCOUNTER 2022-03-17 12:58 | Outpatient (CLI) | payer MEDICAID ==
[2022-03-17 14:21] VITALS: BP 106/77
[2022-03-17] MEDS ORDERED: LACTATED RINGERS 500 ML IV ONE (14:57)
[2022-03-17 16:38] LABS: Bilirubin,Urine NEG (Negative); Blood,Urine NEG (Negative); Color,Urine Yellow (Yellow); Protein,Urine <15 mg/dL mg/dL (Negative); Urobilinogen,Urine < 2.0 mg/dL (<2.0)
[2022-03-17 16:43] LABS: Mucus,Urine FEW /HPF
--- NOTE | 2022-03-17 20:09 | Ultrasound Report ---
ULTRASOUND OBSTETRIC LIMITED INDICATION / CLINICAL INFORMATION: placenta evaluation. Clinical Gestational Age (GA) in weeks, days: 25 weeks 3 days TECHNIQUE: Transabdominal. COMPARISON: 10/28/2021. FINDINGS: Single live intrauterine in cephalic presentation with heart rate measuring 157 bpm. The anterior placenta is free of the os. No lifting or separation of the placenta. No retroplacental hematoma. 6 cm hypoechoic region underlying the placenta most likely reflects uterine fibroid or poss ibly focal contraction. Cervix measures 5.1 cm. Cervix is closed. IMPRESSION: 1. Single live intrauterine . 2. Anterior placenta is free of the os. No evidence of lifting or separation of the placenta. No retr oplacental hematoma. Signer Name: Connor Rose MD Signed: 03/17/2022 8:04 PM Workstation Name: [id number]
== END 2022-03-17 19:00 | disposition home or self-care (01) ==
LOC: TRG 12:58 → APU 13:23 → TRG 19:00
PROVIDERS: ATTEND Obstetrics & Gynecology
DX: O26.893 Other specified pregnancy related conditions, third trimester (principal); Z3A.28 28 weeks gestation of pregnancy
CPT/HCPCS: 76815; 81001

== ENCOUNTER 2022-03-20 01:04 | Outpatient (CLI) | payer MEDICAID ==
[2022-03-20] MEDS ORDERED: LACTATED RINGERS 1,000 ML IV ONE (03:26)
[2022-03-20] MEDS ORDERED: TERBUTALINE 1 MG/1 ML INJ SUB-Q STA (03:27)
[2022-03-20 04:06] VITALS: BP 131/92
[2022-03-20] MEDS ORDERED: TERBUTALINE 1 MG/1 ML INJ IVP ONE (05:20)
--- NOTE | 2022-03-20 05:48 | Ultrasound Report ---
ULTRASOUND OBSTETRIC LIMITED INDICATION / CLINICAL INFORMATION: Pain, Contractions. - Clinical Gestational Age (GA) in weeks, days: 25, 6 TECHNIQUE: Transabdominal and Transvaginal. COMPARISON: 03/17/2022. FINDINGS: HEART RATE (beats per minute): 161 AMNIOTIC FLUID INDEX (cm) = 7.1 (normal = 7-24 cm) PRESENTATION: Cephalic. ADDITIONAL FINDINGS: Estimated age is 24 weeks 6 days. Estimated weight is 762 g. Cervix measures 3.6 cm and is closed. IMPRESSION: Viable intrauterine dated 24 weeks 6 days by ultrasound. Signer Name: Justiec Mccormick MD Signed: 03/20/2022 5:43 AM Workstation Name: [id number]
== END 2022-03-20 06:45 | disposition home or self-care (01) ==
LOC: TRG 01:04 → APU 01:06 → TRG 06:45
PROVIDERS: ATTEND Obstetrics & Gynecology
DX: O26.893 Other specified pregnancy related conditions, third trimester (principal); R10.9 Unspecified abdominal pain; Z3A.30 30 weeks gestation of pregnancy
CPT/HCPCS: 36415; 59025; 76816; 76817; 82731; 96360; 96372; J3105; J7120